=== PATIENT | female | born 1970 | race African-American/Black ===

== ENCOUNTER 2016-12-08 08:35 | Emergency (ER) | payer BC, OTHER ==
[~2016-12-08] VITALS: Ht 167.6 cm; Wt 90.1 kg
[~2016-12-08 08:35] MED LIST: Z.0.NO CURRENT MEDS
[2016-12-08 08:38] VITALS: BP 113/84; PULSE 128; RESP 18; TEMP 98.2; O2SAT 96
[2016-12-08] MEDS ORDERED: SODIUM CHLOR 0.9% 1000 ML INJ 1,000 ML IV SCH (08:57)
[2016-12-08] MEDS ORDERED: ONDANSETRON HCL 4 MG/2 ML VIAL IVP ONE (09:00)
--- NOTE | 2016-12-08 09:04 | PD ---
HPI Chief Complaint: GI Complaint Time Seen by Provider: 08:50 Travel History International Travel<30 days: No Contact w/Intl Traveler<30days: No Traveled to known affect area: No History of Present Illness HPI 46-year-old female complains of chills and vomiting. Patient states that the symptoms started 3 days ago. Patient denies any headache. Patient denies earaches or sore throat. Patient denies any coughing congestion. Patient denies abdominal pain. Patient denies any dysuria or frequency. Patient denies any fever. Patient denies any vaginal discharge or bleeding. Patient has sick contacts with coworkers recently. PFSH Past Medical History ?: Not Tubal Ligation: Yes Past Surgical History Cholecystectomy: Yes Social History Alcohol Use: No Tobacco Use: No Allergies-Medications (Allergen,Severity, Reaction): Coded Allergies: No Known Allergies (Verified , 12/08/16) Reported Meds & Prescriptions Reported Meds & Active Scripts Active No Active Prescriptions or Reported Medications Review of Systems General / Constitutional: Positive: Chills, No: Fever Eyes: No: Visual changes HENT: No: Headaches Cardiovascular: No: Chest Pain or Discomfort Respiratory: No: Shortness of Breath Gastrointestinal: Positive: Vomiting, No: Abdominal Pain Genitourinary: No: Dysuria Musculoskeletal: No: Pain Skin: No Rash Neurologic: No: Weakness Psychiatric: No: Depression Endocrine: No: Polydipsia Hematologic/Lymphatic: No: Easy Bruising Physical Exam Narrative GENERAL: Well-nourished, well-developed patient. SKIN: Warm and dry. HEAD: Normocephalic. EYES: No scleral icterus. No injection or drainage. NECK: Supple, trachea midline. No JVD or lymphadenopathy. CARDIOVASCULAR: Regular rate and rhythm without murmurs, gallops, or rubs. RESPIRATORY: Breath sounds equal bilaterally. No accessory muscle use. GASTROINTESTINAL: Abdomen soft, non-tender, nondistended. MUSCULOSKELETAL: No cyanosis, or edema. BACK: Nontender without obvious deformity. No CVA tenderness. Neurologic exam normal. Data Data Last Documented VS Vital Signs Date Time Temp Pulse Resp B/P Pulse Ox O2 Delivery O2 Flow Rate FiO2 12/08/16 10:44 105 18 117/64 Room Air 12/08/16 09:07 96 12/08/16 08:38 98.2 Orders Complete Blood Count With Diff (12/08/16 08:57) Comprehensive Metabolic Panel (12/08/16 08:57) Lipase (12/08/16 08:57) Urinalysis - C+S If Indicated (12/08/16 08:57) Iv Access Insert/Monitor (12/08/16 08:57) Ecg Monitoring (12/08/16 08:57) Oximetry (12/08/16 08:57) Ondansetron Inj (Zofran Inj) (12/08/16 09:00) Sodium Chlor 0.9% 1000 Ml Inj (Ns 1000 M (12/08/16 08:57) Chest, Single Ap (12/08/16 08:57) Influenzae A/B Antigen (12/08/16 08:57) Urine Culture (12/08/16 10:35) Labs Laboratory Tests Test 12/08/16 12/08/16 09:00 10:35 White Blood Count 6.0 TH/MM3 Red Blood Count 4.74 MIL/MM3 Hemoglobin 13.1 GM/DL Hematocrit 39.0 % Mean Corpuscular Volume 82.2 FL Mean Corpuscular Hemoglobin 27.6 PG Mean Corpuscular Hemoglobin 33.6 % Concent Red Cell Distribution Width 12.6 % Platelet Count 303 TH/MM3 Mean Platelet Volume 7.9 FL Neutrophils (%) (Auto) 69.8 % Lymphocytes (%) (Auto) 20.1 % Monocytes (%) (Auto) 9.4 % Eosinophils (%) (Auto) 0.0 % Basophils (%) (Auto) 0.7 % Neutrophils # (Auto) 4.2 TH/MM3 Lymphocytes # (Auto) 1.2 TH/MM3 Monocytes # (Auto) 0.6 TH/MM3 Eosinophils # (Auto) 0.0 TH/MM3 Basophils # (Auto) 0.0 TH/MM3 CBC Comment DIFF FINAL Differential Comment Sodium Level 138 MEQ/L Potassium Level 3.1 MEQ/L Chloride Level 100 MEQ/L Carbon Dioxide Level 26.7 MEQ/L Anion Gap 11 MEQ/L Blood Urea Nitrogen 10 MG/DL Creatinine 0.50 MG/DL Estimat Glomerular Filtration 159 ML/MIN Rate Random Glucose 157 MG/DL Calcium Level 9.4 MG/DL Total Bilirubin 0.7 MG/DL Aspartate Amino Transf 20 U/L (AST/SGOT) Alanine Aminotransferase 21 U/L (ALT/SGPT) Alkaline Phosphatase 79 U/L Total Protein 9.5 GM/DL Albumin 3.7 GM/DL Lipase 94 U/L Urine Collection Type CLEAN CATCH Urine Color LIGHT-BROWN Urine Turbidity CLOUDY Urine pH 5.5 Urine Specific [place] 1.028 Urine Protein 100 mg/dL Urine Glucose (UA) NEG mg/dL Urine Ketones 40 mg/dL Urine Occult Blood LARGE Urine Nitrite NEG Urine Bilirubin NEG Urine Leukocyte Esterase SMALL Urine RBC INNUM /hpf Urine WBC 9-14 /hpf Urine Squamous Epithelial 0-5 /hpf Cells Microscopic Urinalysis Comment CULTURE INDICATED MDM Medical Decision Making Medical Screen Exam Complete: Yes Emergency Medical Condition: Yes Interpretation(s) Last Impressions Chest X-Ray 12/08/16 0857 Signed Impressions: Service Date/Time: Thursday, December 08, 2016 09:23 - CONCLUSION: No acute disease. Phoenix Edmonds MD 11 AM. CBC within normal limit. Potassium 3.1. CMP otherwise within normal limit. UA positive WBC RBC. Influenza AB antigen negative. Differential Diagnosis Differential diagnosis including viral syndrome, gastroenteritis, pneumonia, UTI , electrolyte imbalance, dehydration, sepsis. Narrative Course 46-year-old female with chills and vomiting. Normal saline solution 1 L IV bolus. Zofran 4 mg IV. Rocephin 1 g IV given. Diagnosis Primary Impression: UTI (urinary tract infection) Qualified Code: N30.01 - Acute cystitis with hematuria Patient Instructions: General Instructions Additional Instructions: Take medications as directed. Follow-up with personal physician and urologist for complete clearance of immature area. Return if persistent problem or worse. Advised by mouth fluid. Med/Other Pt SpecificInfo: Prescription(s) given Scripts Sulfamethoxazole-Trimethoprim (Bactrim DS)800-160 Mg Tab1 Tab PO BID #14 TAB Prov:Marshall Vera MD 12/08/16 Disposition: 01 DISCHARGE HOME Condition: Stable Marshall Vera MD Dec 08, 2016 09:04
[2016-12-08 09:05] LABS: AUTOMATED NEUTROPHIL # 4.2 TH/MM3 (1.8-7.7); BASOPHIL % 0.7 % (0.0-2.0); HEMO FLAGS DIFF FINAL; LYMPH % 20.1 % (9.0-44.0); LYMPHOCYTE # 1.2 TH/MM3 (1.0-4.8); MEAN CELL VOLUME 82.2 FL (80.0-100.0); MEAN CORPUSCULAR HEMOGLOBIN 27.6 PG (27.0-34.0); MEAN CORPUSCULAR HGB CONC 33.6 % (32.0-36.0); MONO % 9.4 % (0.0-8.0); NEUT % 69.8 % (16.0-70.0); PLATELET COUNT 303 TH/MM3 (150-450); RED BLOOD COUNT 4.74 MIL/MM3 (4.00-5.30); RED CELL DISTRIBUTION WIDTH 12.6 % (11.6-17.2)
[2016-12-08 09:07] VITALS: BP 126/83; PULSE 118; RESP 18; O2SAT 96
[2016-12-08 09:28] LABS: BLOOD UREA NITROGEN 10 MG/DL (7-18)
[2016-12-08 09:29] LABS: CHLORIDE 100 MEQ/L (98-107); GLOMERULAR FILTRATION RATE 159 ML/MIN (>89); POTASSIUM 3.1 MEQ/L (3.5-5.1); SODIUM (NA) 138 MEQ/L (136-145)
--- NOTE | 2016-12-08 09:46 | RADHPO ---
EXAM DATE/TIME: 12/08/2016 09:23 [facility] COMPARISON: No previous studies available for comparison. INDICATIONS : Abdominal pain, vomiting. MEDICAL HISTORY : None. SURGICAL HISTORY : None. ENCOUNTER: Initial ACUITY: 3 days PAIN SCORE: 0/10 LOCATION: Bilateral abdomen FINDINGS: A single view of the chest demonstrates the lungs to be symmetrically aerated without evidence of mas s, infiltrate or effusion. The cardiomediastinal contours are unremarkable. Osseous structures are intact. CONCLUSION: No acute disease. Phoenix Edmonds MD on December 08, 2016 at 9:44 Board Certified Radiologist. This report was verified electronically.
[2016-12-08 10:16] LABS: ALKALINE PHOSPHATASE 79 U/L (45-117); ALT (GPT) 21 U/L (10-53); AST (GOT) 20 U/L (15-37); TOTAL BILIRUBIN ADULT 0.7 MG/DL (0.2-1.0)
[2016-12-08 10:17] LABS: ANION GAP 11 MEQ/L (5-15); BICARBONATE 26.7 MEQ/L (21.0-32.0)
[2016-12-08 10:42] LABS: BLOOD, URINE LARGE (NEG); GLUCOSE,URINE NEG (NEG); KETONE, URINE 40 mg/dL (NEG); NITRITE,URINE NEG (NEG); PH, URINE 5.5 (5.0-8.5)
[2016-12-08 10:44] VITALS: BP 117/64; PULSE 105; RESP 18
[2016-12-08 10:49] LABS: METHOD OF COLLECTION CLEAN CATCH; URINE COLOR LIGHT-BROWN (YELLW/STRAW)
[2016-12-08 10:50] LABS: RBC, URINE INNUM /hpf (0-3); SQUAMOUS EPITHELIAL CELL URINE 0-5 /hpf (0-5)
[2016-12-08 10:51] LABS: COMMENT (UR) CULTURE INDICATED; CULTURE IF INDICATED CULTURE INDICATED
[2016-12-08] MEDS ORDERED: BACT800T5 PO (11:06)
[2016-12-08] MEDS ORDERED: cefTRIAXone INJ 1,000 MG in SODIUM CHLORIDE 0.9% INJ 100 ML IV ONE (11:15)
[2016-12-08 12:08] VITALS: BP 120/64
== END 2016-12-08 12:10 | disposition home or self-care (01) ==
LOC: PHED 08:35
DX: N39.0 Urinary tract infection, site not specified (principal); B96.89 Other specified bacterial agents as the cause of diseases classified elsewhere
CPT/HCPCS: 71010; 80053; 81001; 83690; 85025; 87086; 87804; 96361; 96365; 96375; 99284; J0696; J2405; J7030

== ENCOUNTER 2017-06-14 11:28 | Emergency (ER) | payer BC ==
[~2017-06-14] VITALS: Ht 167.6 cm; Wt 81.5 kg
[~2017-06-14 11:28] MED LIST changes: +BACT800T5 PO; -Z.0.NO CURRENT MEDS
[2017-06-14 11:30] VITALS: BP 129/76; PULSE 84; RESP 16; TEMP 98.2; O2SAT 99
[2017-06-14] MEDS ORDERED: BACT800T5 PO (11:44)
--- NOTE | 2017-06-14 11:44 | PD ---
HPI Chief Complaint: Edema Time Seen by Provider: 11:41 Travel History International Travel<30 days: No Contact w/Intl Traveler<30days: No Traveled to known affect area: No History of Present Illness HPI 47 yo F c/o itching, pain and swelling along the left distal humerus. erythema also noticed. onset gradual. duration about 24 hours. no fever. no dyspnea. she thought it may have been an insect bite. PFSH Past Medical History Medical History: Denies Significant Hx Influenza Vaccination: No ?: Unknown LMP: 3 WEEKS AGO Tubal Ligation: Yes Past Surgical History Cholecystectomy: Yes Social History Alcohol Use: No Tobacco Use: No Substance Use: No Allergies-Medications (Allergen,Severity, Reaction): Coded Allergies: No Known Allergies (Verified , 06/14/17) Reported Meds & Prescriptions Reported Meds & Active Scripts Active Bactrim DS (Sulfamethoxazole-Trimethoprim) 800-160 Mg Tab 1 Tab PO BID Review of Systems General / Constitutional: No: Fever Respiratory: No: Shortness of Breath Physical Exam Narrative GENERAL: 47 yo F, NAD SKIN: Minimal warmth about distal radial humerus. Erythema and trace swelling also noticed. Trace TTP. HEAD: Normocephalic. EYES: No scleral icterus. No injection or drainage. CARDIOVASCULAR: Regular rate and rhythm without murmurs, gallops, or rubs. RESPIRATORY: No dyspnea. The lungs clear. MUSCULOSKELETAL: No cyanosis, or edema. Data Data Last Documented VS Vital Signs Date Time Temp Pulse Resp B/P (MAP) Pulse Ox O2 Delivery O2 Flow Rate FiO2 06/14/17 12:05 06/14/17 11:30 98.2 84 16 99 VS reviewed BP normal Orders Orders Sulfamet-Trimeth Ds 800-160 Mg (Bactrim (06/14/17 11:45) Dexamethasone Inj (Decadron Inj) (06/14/17 11:45) MDM Medical Decision Making Medical Screen Exam Complete: Yes Emergency Medical Condition: Yes Medical Record Reviewed: Yes Differential Diagnosis cellulitis, anyphylaxis, cellulitis, insect bite Narrative Course right arm dermatitis perhaps trace superimposed cellulitis. no anyphylaxis/pulmonary distress decadron/bactrim ds Diagnosis Primary Impression: Insect bite Qualified Codes: W57.XXXA - Bitten or stung by nonvenomous insect and other nonvenomous arthropods, initial encounter Referrals: Primary Care Physician Med/Other Pt SpecificInfo: Prescription(s) given Scripts Sulfamethoxazole-Trimethoprim (Bactrim DS) 800-160 Mg Tab 1 TAB PO BID for Infection, #14 TAB 0 Refills Prov: Ventura Arguello MD 06/14/17 Disposition: 01 DISCHARGE HOME Condition: Stable Ventura Arguello MD Jun 14, 2017 11:44
[2017-06-14] MEDS ORDERED: SULFAMETHOXAZOLE-TRIMETHOPRIM DS 800-160 MG TAB PO ONE (11:45)
[2017-06-14] MEDS ORDERED: DEXAMETHASONE SOD PHOS 4 MG/ML VIAL IM ONE (11:45)
== END 2017-06-14 12:05 | disposition home or self-care (01) ==
LOC: NEPK 11:28
DX: S40.862A Insect bite (nonvenomous) of left upper arm, initial encounter (principal); W57.XXXA Bitten or stung by nonvenomous insect and other nonvenomous arthropods, initial encounter
CPT/HCPCS: 96372; 99284; J1100

== ENCOUNTER 2017-12-20 18:06 | Emergency (ER) | payer BC ==
[~2017-12-20] VITALS: Ht 167.6 cm; Wt 91.0 kg
[2017-12-20 18:09] VITALS: BP 149/74; PULSE 127; RESP 20; TEMP 100.9; O2SAT 96
[2017-12-20] MEDS ORDERED: SODIUM CHLOR 0.9% 1000 ML INJ 1,000 ML IV ONE (18:16)
[2017-12-20] MEDS ORDERED: SODIUM CHLOR 0.9% 1000 ML INJ 800 ML IV ONE (18:16)
--- NOTE | 2017-12-20 18:19 | PD ---
HPI Chief Complaint: Cold / Flu Symptoms Time Seen by Provider: 18:13 Travel History International Travel<30 days: No Contact w/Intl Traveler<30days: No Traveled to known affect area: No History of Present Illness HPI 47-year-old female here for evaluation of fever, generalized malaise, generalized body aches. Symptoms started 2 days ago. She has had a slight nonproductive cough. She has also felt nauseous and had a couple episodes of vomiting. No diarrhea. No abdominal pain. No chest pain or dyspnea. No sore throat. No sick contacts. No rash. PFSH Past Medical History ?: Not Tubal Ligation: Yes Past Surgical History Cholecystectomy: Yes Social History Alcohol Use: No Tobacco Use: No Substance Use: No Allergies-Medications (Allergen,Severity, Reaction): Coded Allergies: No Known Allergies (Verified Allergy, Unknown, 12/20/17) Reported Meds & Prescriptions Reported Meds & Active Scripts Active Review of Systems Except as stated in HPI: all other systems reviewed are Neg Physical Exam Narrative GENERAL: Well-developed, well-nourished, awake, alert, no apparent distress. SKIN: Focused skin assessment warm/dry. HEAD: Atraumatic. Normocephalic. EYES: Pupils equal and round. No scleral icterus. No injection or drainage. ENT: No nasal bleeding or discharge. Mucous membranes pink and dry. NECK: Trachea midline. No JVD. CARDIOVASCULAR: Tachycardic, rate 125, regular. RESPIRATORY: No accessory muscle use. Clear to auscultation. Breath sounds equal bilaterally. GASTROINTESTINAL: Abdomen soft, non-tender, nondistended. MUSCULOSKELETAL: No obvious deformities. No clubbing. No cyanosis. No edema. NEUROLOGICAL: Awake and alert. No obvious cranial nerve deficits. Motor grossly within normal limits. Normal speech. PSYCHIATRIC: Appropriate mood and affect; insight and judgment normal. Data Data Last Documented VS Vital Signs Date Time Temp Pulse Resp B/P (MAP) Pulse Ox O2 Delivery O2 Flow Rate FiO2 12/20/17 21:15 102 16 128/77 (94) 99 Room Air 12/20/17 19:45 99.6 Orders Orders Sepsis Workup Initiated (12/20/17 ) Complete Blood Count With Diff (12/20/17 18:16) Comprehensive Metabolic Panel (12/20/17 18:16) Lactic Acid Sepsis Protocol (12/20/17 18:16) Urinalysis - C+S If Indicated (12/20/17 18:16) Influenzae A/B Antigen (12/20/17 18:16) Blood Culture (12/20/17 18:16) Chest, Single Ap (12/20/17 18:16) Ecg Monitoring (12/20/17 18:16) Iv Access Insert/Monitor (12/20/17 18:16) Oximetry (12/20/17 18:16) Acetaminophen (Tylenol) (12/20/17 18:30) Sodium Chlor 0.9% 1000 Ml Inj (Ns 1000 M (12/20/17 18:16) Sodium Chlor 0.9% 1000 Ml Inj (Ns 1000 M (12/20/17 18:16) Urine Culture (12/20/17 19:45) Ceftriaxone Inj (Rocephin Inj) (12/20/17 20:15) Potassium Chloride (Kcl) (12/20/17 20:15) Labs Laboratory Tests Test 12/20/17 18:30 12/20/17 18:35 12/20/17 19:45 White Blood Count 5.8 TH/MM3 Red Blood Count 4.63 MIL/MM3 Hemoglobin 13.0 GM/DL Hematocrit 38.0 % Mean Corpuscular Volume 82.2 FL Mean Corpuscular Hemoglobin 28.1 PG Mean Corpuscular Hemoglobin Concent 34.2 % Red Cell Distribution Width 12.4 % Platelet Count 301 TH/MM3 Mean Platelet Volume 7.8 FL Neutrophils (%) (Auto) 54.7 % Lymphocytes (%) (Auto) 29.5 % Monocytes (%) (Auto) 15.1 % Eosinophils (%) (Auto) 0.1 % Basophils (%) (Auto) 0.6 % Neutrophils # (Auto) 3.2 TH/MM3 Lymphocytes # (Auto) 1.7 TH/MM3 Monocytes # (Auto) 0.9 TH/MM3 Eosinophils # (Auto) 0.0 TH/MM3 Basophils # (Auto) 0.0 TH/MM3 CBC Comment DIFF FINAL Differential Comment Blood Urea Nitrogen 11 MG/DL Creatinine 0.69 MG/DL Random Glucose 106 MG/DL Total Protein 8.9 GM/DL Albumin 3.7 GM/DL Calcium Level 9.4 MG/DL Alkaline Phosphatase 86 U/L Aspartate Amino Transf (AST/SGOT) 16 U/L Alanine Aminotransferase (ALT/SGPT) 15 U/L Total Bilirubin 0.5 MG/DL Sodium Level 138 MEQ/L Potassium Level 3.3 MEQ/L Chloride Level 104 MEQ/L Carbon Dioxide Level 27.0 MEQ/L Anion Gap 7 MEQ/L Estimat Glomerular Filtration Rate 109 ML/MIN Lactic Acid Level 1.0 mmol/L Urine Collection Type CLEAN CATCH Urine Color YELLOW Urine Turbidity [place] CLOUDY Urine pH 6.0 Urine Specific [place] 1.025 Urine Protein TRACE mg/dL Urine Glucose (UA) NEG mg/dL Urine Ketones TRACE mg/dL Urine Occult Blood NEG Urine Nitrite NEG Urine Bilirubin NEG Urine Urobilinogen 0.2 MG/DL Urine Leukocyte Esterase MOD Urine RBC 0-3 /hpf Urine WBC 9-14 /hpf Urine Squamous Epithelial Cells 6-8 /hpf Urine Amorphous Sediment SMALL Urine Bacteria OCC /hpf Urine Mucus MOD /lpf Microscopic Urinalysis Comment CULTURE INDICATED MDM Medical Decision Making Medical Screen Exam Complete: Yes Emergency Medical Condition: Yes Differential Diagnosis Influenza, sepsis, pneumonia, dehydration, UTI Narrative Course Initial vital signs show heart rate 127, blood pressure 149/74, pulse ox 96% on room air, oral temperature 100.9F. CBC: WBC 5.8, hemoglobin 13, hematocrit 38, platelets 301. CMP is remarkable for potassium 3.3, otherwise unremarkable. Lactic acid is 1.0. Influenza is negative. UA is suggestive of UTI. Patient was given 2 L normal saline IV, Tylenol, 1 g of IV Rocephin. On reassessment she has defervesced and her heart rate improved to 99 bpm. She still feels lousy, however she does feel somewhat improved. Plan is to discharge her home with a prescription for Bactrim as she has a UTI. She also likely has a viral URI concomitantly. She was advised to stay hydrated with plenty of fluids and to keep fever under control with Tylenol and ibuprofen. PMD follow-up this week. She will be discharged home with a prescription for Bactrim. She was advised on when to return to the emergency department. She verbalizes understanding and will plan. Diagnosis Primary Impression: UTI (urinary tract infection) Qualified Codes: N39.0 - Urinary tract infection, site not specified Additional Impression: URI (upper respiratory infection) Qualified Codes: J06.9 - Acute upper respiratory infection, unspecified Referrals: [facility] 3 days Additional Instructions: Follow-up with a primary care physician this week. Stay hydrated with plenty of fluids. Return to the emergency department for worsening symptoms or any other concerns. Scripts Sulfamethoxazole-Trimethoprim (Bactrim DS) 800-160 Mg Tab 1 TAB PO BID for Infection, #6 TAB 0 Refills Prov: Matthew Guerra MD 12/20/17 Disposition: 01 DISCHARGE HOME Condition: Stable Matthew Guerra MD Dec 20, 2017 18:19
[2017-12-20] MEDS ORDERED: ACETAMINOPHEN 325 MG TAB PO ONE (18:30)
[2017-12-20 18:35] VITALS: BP 126/82; PULSE 120; RESP 18; TEMP 100.2; O2SAT 97
[2017-12-20 18:49] VITALS: RESP 18; O2SAT 97
[2017-12-20 19:03] LABS: AUTOMATED NEUTROPHIL # 3.2 TH/MM3 (1.8-7.7); BASOPHIL % 0.6 % (0.0-2.0); EOSINOPHIL % 0.1 % (0.0-4.0); LYMPH % 29.5 % (9.0-44.0); LYMPHOCYTE # 1.7 TH/MM3 (1.0-4.8); MEAN CELL VOLUME 82.2 FL (80.0-100.0); MEAN CORPUSCULAR HEMOGLOBIN 28.1 PG (27.0-34.0); MEAN CORPUSCULAR HGB CONC 34.2 % (32.0-36.0); MEAN PLATELET VOLUME 7.8 FL (7.0-11.0); MONO % 15.1 % (0.0-8.0); MONOCYTE # 0.9 TH/MM3 (0-0.9); NEUT % 54.7 % (16.0-70.0); PLATELET COUNT 301 TH/MM3 (150-450); RED BLOOD COUNT 4.63 MIL/MM3 (4.00-5.30); RED CELL DISTRIBUTION WIDTH 12.4 % (11.6-17.2); WHITE BLOOD COUNT 5.8 TH/MM3 (4.0-11.0)
--- NOTE | 2017-12-20 19:13 | RADRPT ---
EXAM DATE/TIME: 12/20/2017 18:24 [facility] COMPARISON: No previous studies available for comparison. INDICATIONS : Fever, cough. MEDICAL HISTORY : None. SURGICAL HISTORY : None. ENCOUNTER: Initial ACUITY: 2 days PAIN SCORE: 0/10 LOCATION: Bilateral chest FINDINGS: A single view of the chest demonstrates the lungs to be symmetrically aerated without evidence of mas s, infiltrate or effusion. The cardiomediastinal contours are unremarkable. Osseous structures are intact. CONCLUSION: No acute disease. Alex Leon MD on December 20, 2017 at 19:03 Board Certified Radiologist. This report was verified electronically.
[2017-12-20 19:18] LABS: CHLORIDE 104 MEQ/L (98-107); SODIUM (NA) 138 MEQ/L (136-145)
[2017-12-20 19:22] LABS: CALCIUM 9.4 MG/DL (8.5-10.1)
[2017-12-20 19:23] LABS: ALBUMIN 3.7 GM/DL (3.4-5.0); BLOOD UREA NITROGEN 11 MG/DL (7-18); GLUCOSE,RANDOM 106 MG/DL (74-106)
[2017-12-20 19:26] LABS: ALT (GPT) 15 U/L (10-53); AST (GOT) 16 U/L (15-37); CREATININE 0.69 MG/DL (0.50-1.00); GLOMERULAR FILTRATION RATE 109 ML/MIN (>89)
[2017-12-20 19:27] LABS: TOTAL BILIRUBIN ADULT 0.5 MG/DL (0.2-1.0); TOTAL PROTEIN 8.9 GM/DL (6.4-8.2)
[2017-12-20 19:29] LABS: ALKALINE PHOSPHATASE 86 U/L (45-117)
[2017-12-20 19:45] VITALS: BP 122/63; PULSE 114; RESP 16; TEMP 99.6; O2SAT 99
[2017-12-20 19:54] LABS: BILIRUBIN, URINE NEG (NEG); BLOOD, URINE NEG (NEG); GLUCOSE,URINE NEG (NEG); KETONE, URINE TRACE mg/dL (NEG); NITRITE,URINE NEG (NEG); URINE COLOR YELLOW (YELLW/STRAW); URINE LEUKOCYTE ESTERASE MOD (NEG)
[2017-12-20 20:04] LABS: MUCUS URINE MOD /lpf (OCC)
[2017-12-20 20:05] LABS: AMORPHOUS SEDIMENT, URINE SMALL; RBC, URINE 0-3 /hpf (0-3)
[2017-12-20 20:06] LABS: BACTERIA, URINE OCC /hpf
[2017-12-20] MEDS ORDERED: POTASSIUM CHLORIDE 20 MEQ CONTROLLED RELEASE TAB PO ONE (20:15)
[2017-12-20] MEDS ORDERED: cefTRIAXone INJ 1,000 MG in SODIUM CHLORIDE 0.9% INJ 100 ML IV ONE (20:15)
[2017-12-20 21:15] VITALS: BP 128/77; PULSE 102; RESP 16; O2SAT 99
[2017-12-20] MEDS ORDERED: BACT800T5 PO (21:30)
[2017-12-20 21:44] VITALS: BP 121/63; TEMP 98.8
== END 2017-12-20 21:50 | disposition home or self-care (01) ==
LOC: PHED 18:06
DX: N39.0 Urinary tract infection, site not specified (principal); J06.9 Acute upper respiratory infection, unspecified
CPT/HCPCS: 71045; 80053; 81001; 83605; 85025; 87040; 87086; 87804; 96361; 96365; 99284; J0696; J7030